=== PATIENT | female | born 1995 | race African-American/Black ===

== ENCOUNTER 2018-10-11 19:04 | Emergency (ER) | payer OTHER ==
[~2018-10-11] VITALS: Ht 160 cm; Wt 61.2 kg
[2018-10-11 20:15] VITALS: BP 122/75
[2018-10-11] MEDS ORDERED: MOBIC7.5 MG PO ×2 (21:43→21:47)
== END 2018-10-11 21:54 | disposition home or self-care (01) ==
LOC: ER 19:04
DX: S93.402A Sprain of unspecified ligament of left ankle, initial encounter (principal); W10.8XXA Fall (on) (from) other stairs and steps, initial encounter; Y93.89 Activity, other specified; Y92.89 Other specified places as the place of occurrence of the external cause; Y99.8 Other external cause status

== ENCOUNTER 2020-09-09 18:09 | Emergency (ER) | payer OTHER ==
[~2020-09-09] VITALS: Ht 157.5 cm; Wt 72.6 kg
[~2020-09-09 18:09] MED LIST: MOBIC7.5 MG PO
[2020-09-09 18:14] VITALS: BP 132/77
[2020-09-09] MEDS ORDERED: FLEXERIL PO (18:59)
[2020-09-09] MEDS ORDERED: IBU600 MG PO (18:59)
== END 2020-09-09 19:09 | disposition home or self-care (01) ==
LOC: ER 18:09
DX: S13.4XXA Sprain of ligaments of cervical spine, initial encounter (principal); Z79.899 Other long term (current) drug therapy; V89.2XXA Person injured in unspecified motor-vehicle accident, traffic, initial encounter; Y93.89 Activity, other specified; Y92.89 Other specified places as the place of occurrence of the external cause; Y99.8 Other external cause status

== ENCOUNTER 2021-01-05 06:18 | Emergency (ER) | payer OTHER ==
[~2021-01-05] VITALS: Ht 157.5 cm; Wt 72.6 kg
[~2021-01-05 06:18] MED LIST changes: +FLEXERIL PO; +IBU600 MG PO
[2021-01-05] MEDS ORDERED: VALIUM2 MG PO (09:22)
[2021-01-05] MEDS ORDERED: IBUPROFEN 800800 MG PO (09:22)
[2021-01-05 09:44] VITALS: BP 129/76
== END 2021-01-05 09:45 | disposition home or self-care (01) ==
LOC: ER 06:18
DX: M62.838 Other muscle spasm (principal); M54.2 Cervicalgia; J45.909 Unspecified asthma, uncomplicated